=== PATIENT | male | born 1990 | race African-American/Black ===

== ENCOUNTER 2017-01-01 19:00 | Emergency (ER) | payer SELFPAY ==
[~2017-01-01] VITALS: Ht 188 cm; Wt 104.5 kg
[2017-01-01 19:04] VITALS: BP 138/89; PULSE 103; TEMP 98.3
[2017-01-01] MEDS ORDERED: NORCO 325 MG-51 TAB PO (19:52)
== END 2017-01-01 20:18 | disposition home or self-care (01) ==
LOC: COL.ER 19:00
DX: S63.501A Unspecified sprain of right wrist, initial encounter (principal); S60.221A Contusion of right hand, initial encounter; W22.09XA Striking against other stationary object, initial encounter; Y92.009 Unspecified place in unspecified non-institutional (private) residence as the place of occurrence of the external cause

== ENCOUNTER 2017-01-15 12:03 | Emergency (ER) | payer SELFPAY ==
[~2017-01-15] VITALS: Ht 190.5 cm; Wt 100.0 kg
[~2017-01-15 12:03] MED LIST: NORCO 325 MG-51 TAB PO
[2017-01-15 12:08] VITALS: BP 120/67; TEMP 98.4
[2017-01-15 14:34] VITALS: PULSE 72
== END 2017-01-15 14:35 | disposition home or self-care (01) ==
LOC: COL.ER 12:03
DX: M65.88 Other synovitis and tenosynovitis, other site (principal)